=== PATIENT | female | born 1965 | race Caucasian/White ===

== ENCOUNTER → 2022-10-18 | Outpatient (CLI) | payer BC ==
[~2022-10-18] MED LIST: ANDROGEL75 GM; Adipex-P37.5 MG; Bactrim Ds Tab1 EACH; CEPH500 PO; CHOL10002; ESTMED; FAMO10; FISH1000; FLUO10; IBUP800; LISHYD1012
== END | disposition home or self-care (01) ==
LOC: LAB SHORT 13:15 → LAB 13:15
DX: R31.9 Hematuria, unspecified (principal); R30.0 Dysuria
CPT/HCPCS: 87086